=== PATIENT | female | born 1935 | race Hispanic/Latino ===

== ENCOUNTER 2022-02-16 20:30 | Emergency (ER) | payer OTHER ==
[~2022-02-16] VITALS: Ht 152.4 cm; Wt 61.2 kg
[2022-02-16] MEDS ORDERED: KETOROLAC 30MG VIAL (30MG/ML) ONE (21:53)
[2022-02-16] MEDS ORDERED: KETOROLAC 30MG VIAL (30MG/ML) IM ONE (22:00)
[2022-02-16] MEDS ORDERED: TIZA4CAP8 PO (22:34)
[2022-02-16 22:56] VITALS: BP 142/78
== END 2022-02-16 22:58 | disposition home or self-care (01) ==
LOC: EDBD 20:30 → EDH 20:30
DX: M54.2 Cervicalgia (principal); M62.830 Muscle spasm of back; I10 Essential (primary) hypertension
CPT/HCPCS: 72040; 93005; 96372; 99283; J1885

== ENCOUNTER 2022-07-04 14:24 | Emergency (ER) | payer OTHER ==
[~2022-07-04] VITALS: Ht 152.4 cm; Wt 57.2 kg
[~2022-07-04 14:24] MED LIST: TIZA4CAP8 PO
[2022-07-04] MEDS ORDERED: CEFTRIAXONE 1G VIAL IVP ONE (15:00)
[2022-07-04] MEDS ORDERED: ACETAMINOPHEN 325 MG TAB PO ONE (15:00)
[2022-07-04 15:08] LABS: BASOPHILS % (AUTO) 0.5 % (0.0-5.0); EOSINOPHILS % (AUTO) 2.3 % (0.0-8.0); HEMATOCRIT 32.8 % (36-48); LYMPHOCYTES % (AUTO) 26.8 % (21.0-51.0); MEAN CORPUSCULAR HEMOGLOBIN 30.6 pg (27.0-33.0); MEAN CORPUSCULAR HGB CONC 33.5 g/dL (32.0-36.0); MEAN CORPUSCULAR VOLUME 91.4 fL (79-99); MONOCYTES % (AUTO) 8.2 % (3.0-13.0); NEUTROPHILS % (AUTO) 61.9 % (40.0-77.0); PLATELET COUNT (AUTO) 206 K/uL (130-400); RED BLOOD CELL COUNT(AUTO) 3.59 MIL/uL (4.00-5.50)
[2022-07-04 15:22] LABS: CREATININE 0.8 mg/dL (0.5-1.5); POTASSIUM 3.9 mmol/L (3.5-5.1)
[2022-07-04 15:30] LABS: ALBUMIN 3.5 g/dL (3.5-5.0); CRP QUANTITATIVE 28.9 mg/L (0.00-9.0)
[2022-07-04] MEDS ORDERED: CEPH500B PO (16:51)
[2022-07-04 17:16] VITALS: BP 139/49
== END 2022-07-04 17:17 | disposition home or self-care (01) ==
LOC: EDH 14:24
DX: L03.113 Cellulitis of right upper limb (principal); E78.00 Pure hypercholesterolemia, unspecified; I10 Essential (primary) hypertension; Z98.890 Other specified postprocedural states; Z79.899 Other long term (current) drug therapy
CPT/HCPCS: 99284; 96374; 80053; 85025; 86140; 36415; 73130; 73110; J0696